=== PATIENT | male | born 1965 | race Caucasian/White ===

== ENCOUNTER 2018-12-26 01:26 | Emergency (ER) | payer OTHER ==
[~2018-12-26] VITALS: Ht 172.7 cm; Wt 59.0 kg
[2018-12-26] MEDS ORDERED: TETANUS AND DIPHTHERIA TOX/PF 0.5ML SYR (ADULT) IM ONE (02:30)
[2018-12-26] MEDS ORDERED: ONDANSETRON HCL 4MG/2ML INJ IV ONE (02:30)
[2018-12-26] MEDS ORDERED: MORPHINE SULFATE 4 MG/ML CPJ (NOT FOR IM USE) IV ONE (02:30)
[2018-12-26 02:55] LABS: CHLORIDE 103 mEq/L (98-107)
[2018-12-26 03:01] LABS: ETHANOL BLOOD 179 mg/dL
[2018-12-26 03:15] LABS: HEMATOCRIT 41.4 % (42.0-52.0); HEMOGLOBIN 14.1 g/dL (14.0-18.0); PLATELET 303 x1000/uL (130-400); RED CELL DISTRIBUTION WIDTH 15.6 % (11.6-14.6)
[2018-12-26 04:09] VITALS: BP 119/70
[2018-12-26] MEDS ORDERED: CEFAZOLIN 1000MG PREMIX 50 ML IV ONE (04:30)
== END 2018-12-26 06:13 | disposition short-term general hospital (02) ==
LOC: ER 02:19
DX: S02.2XXA Fracture of nasal bones, initial encounter for closed fracture (principal); S02.19XA Other fracture of base of skull, initial encounter for closed fracture; S02.40DA Maxillary fracture, left side, initial encounter for closed fracture; S02.40EA Zygomatic fracture, right side, initial encounter for closed fracture; S00.11XA Contusion of right eyelid and periocular area, initial encounter; S00.85XA Superficial foreign body of other part of head, initial encounter; R04.0 Epistaxis; F17.210 Nicotine dependence, cigarettes, uncomplicated; F10.129 Alcohol abuse with intoxication, unspecified; Y90.6 Blood alcohol level of 120-199 mg/100 ml; Y08.89XA Assault by other specified means, initial encounter; Y93.89 Activity, other specified; Y92.89 Other specified places as the place of occurrence of the external cause
CPT/HCPCS: 36415; 70450; 70486; 80053; 80320; 85027; 86850; 86900; 86901; 90471; 90714; 96365; 96375; 99291; J0690; J2270; J2405; G0480